=== PATIENT | male | born 1945 | race Two or more races ===

== ENCOUNTER 2025-06-21 09:16 | Inpatient (IN) | payer OTHER ==
[~2025-06-21] VITALS: Ht 170.2 cm; Wt 72.6 kg
[2025-06-21] MEDS ORDERED: SIMVASTATIN80 MG PO (10:17)
[2025-06-21] MEDS ORDERED: NEURONTIN600 M1 PO (10:17)
[2025-06-21] MEDS ORDERED: TENORMIN25 MG PO (10:17)
[2025-06-21] MEDS ORDERED: NORVASC5 MG PO (10:18)
--- NOTE | 2025-06-21 10:20 | NUR ---
PACIENTE ALERTA Y ORIENTADA POR 3. REFIERE VOMITOS, SE LE JOSE ANTONIO S/V Y SE UBICA PARA SER EVALUADO.
[2025-06-21] MEDS ORDERED: FAMOtidine 10 MG/ML (4ML VIAL) IV ONE (11:00)
[2025-06-21] MEDS ORDERED: ONDANSETRON HCL 2 MG/ML VIAL IV ONE (11:15)
[2025-06-21] MEDS ORDERED: PANTOPRAZOLE SODIUM 40 MG/VIAL VIAL IV ONE (11:15)
[2025-06-21] MEDS ORDERED: ONDANSETRON HCL 2 MG/ML VIAL ONE (12:20)
[2025-06-21] MEDS ORDERED: FAMOTIDINE/PF 20 MG/2 ML VIAL ONE ×2 (12:20→17:36)
[2025-06-21 12:23] LABS: BASO % 0.1 % (0.1-1.2); EOS # 0.00 (0.04-0.54); EOS % 0.0 % (0.7-7.0); LYMPH # 0.19 (1.18-3.74); LYMPH % 1.6 % (19.3-53.1); MEAN PLATELET VOLUME 10.40 fl (9.4-12.4); MONO # 0.21 (0.24-0.82); MONO % 1.8 % (4.7-12.5); NEUT # 11.37 (1.56-6.13); NEUT % 96.2 % (34.0-71.1); RED CELL DISTRIBUTION WIDTH 13.7 % (11.6-14.4)
[2025-06-21 12:49] LABS: INR 1.04
[2025-06-21 12:52] LABS: ALT/SGPT 39.0 U/L (12-78); AST/SGOT 23.0 U/L (15-37); BILIRUBIN TOTAL 0.94 mg/dL (0.3-1.2); BILIRUBIN,CONJUGATED 0.22 mg/dL (0.0-0.2); BUN CREA RATIO 30.0 (7.0-25.0); CREATININE SERUM 1.18 mg/dL (0.70-1.30); GFR 59.39; GLUCOSE FASTING 144.0 mg/dL (65-100); OSMOLALITY SERUM 294.0 MOSM/KG (275-295)
[2025-06-21 13:16] LABS: COVID-19 AG NEGATIVE (NEGATIVE)
--- NOTE | 2025-06-21 14:02 | NUR ---
SE EJECUTAN ORDENES MEDICAS EN MONAE TOTALIDAD.
[2025-06-21] MEDS ORDERED: 0.9 % SODIUM CHLORIDE 1,000 ML IV STA (15:26)
[2025-06-21] MEDS ORDERED: MORPHINE SULFATE 2 MG/ML SYRINGE IV ONE (15:30)
[2025-06-21] MEDS ORDERED: CEFTRIAXONE SODIUM 2,000 MG in 0.9 % SODIUM CHLORIDE 100 ML IV SCH (16:57)
[2025-06-21] MEDS ORDERED: FAMOTIDINE/PF 20 MG in 0.9 % SODIUM CHLORIDE 8 ML IV PUSH SCH (16:58)
[2025-06-21] MEDS ORDERED: SIMVASTATIN 40 MG TABLET PO SCH (17:00)
[2025-06-21] MEDS ORDERED: ACETAMINOPHEN 500 MG GEL..CAP PO PRN (17:00)
[2025-06-21] MEDS ORDERED: ONDANSETRON HCL 4 MG in 0.9 % SODIUM CHLORIDE 50 ML IV PRN (17:00)
[2025-06-21] MEDS ORDERED: 0.9 % SODIUM CHLORIDE 1,000 ML IV SCH (17:00)
[2025-06-21] MEDS ORDERED: METRONIDAZOLE/SODIUM CHLORIDE 500 MG/100 ML PIGGYBACK IV ONE (17:36)
[2025-06-21] MEDS ORDERED: CEFTRIAXONE SODIUM 2,000 MG VIAL ONE (17:36)
[2025-06-21 17:45] VITALS: BP 100/80
[2025-06-21 19:32] LABS: URINE APPEARANCE Clear; URINE BILIRRUBIN Negative (NEGATIVE); URINE BLOOD Negative; URINE COLOR Dark Yellow; URINE GLUCOSE Negative (NEGATIVE); URINE KETONE 15 (NEGATIVE); URINE LEUKOCYTE Negative; URINE NITRATE Negative; URINE UROBILINOGEN 0.2 E.U./dl
[2025-06-21 19:34] LABS: URINE BACTERIA 19.1 uL (0.0-1933); URINE EPITHELIAL CELLS 5.6 uL (0.0-38.8); URINE RBC 6.5 uL (0.0-20.8); URINE WBC 2.9 uL (0.0-23.2)
[2025-06-21 19:40] LABS: URINE CAST 0.43 uL (0.0-1.40); URINE PROTEIN 300 (NEGATIVE)
[2025-06-21 23:30] VITALS: BP 138/81; O2SAT 98
[2025-06-22] MEDS ORDERED: METRONIDAZOLE/SODIUM CHLORIDE 500 MG/100 ML PIGGYBACK IV ONE (02:10)
[2025-06-22 07:15] VITALS: BP 170/63; O2SAT 100
[2025-06-22] MEDS ORDERED: ATENOLOL 25 MG TABLET PO SCH (09:00)
[2025-06-22] MEDS ORDERED: ENOXAPARIN SODIUM 40 MG/0.4 ML SYRINGE SUBCUTANEO SCH (09:00)
[2025-06-22] MEDS ORDERED: AMLODIPINE BESYLATE 5 MG TABLET PO SCH (09:00)
[2025-06-22] MEDS ORDERED: CIPRO500 MG PO (10:25)
[2025-06-22] MEDS ORDERED: METRONIDAZOLE500 MG PO (10:25)
[2025-06-22] MEDS ORDERED: INTESTINEX680 M1 PO (10:26)
[2025-06-22] MEDS ORDERED: PROTONIX40 MG PO (10:26)
[2025-06-22] MEDS ORDERED: ONDANSETRON ODT8 MG PO (10:27)
== END 2025-06-22 12:02 | disposition home or self-care (01) | DRG 391 ==
LOC: ER 09:17 → SEC-K 17:17
PROVIDERS: General Practice; ADMIT Internal Medicine; ATTEND Internal Medicine
PROC: BW21ZZZ Computerized Tomography (CT Scan) of Abdomen and Pelvis (ICD-10-PCS; principal; 2025-06-21)
DX: K52.9 Noninfective gastroenteritis and colitis, unspecified (principal); K85.90 Acute pancreatitis without necrosis or infection, unspecified; R11.2 Nausea with vomiting, unspecified; E86.0 Dehydration; R63.8 Other symptoms and signs concerning food and fluid intake; K29.00 Acute gastritis without bleeding; R11.10 Vomiting, unspecified; R10.9 Unspecified abdominal pain